=== PATIENT | female | born 1970 | race Caucasian/White ===

== ENCOUNTER 2019-08-27 07:32 | Day surgery (SDC) | payer OTHER ==
[~2019-08-27 07:32] MED LIST: DOCU100 PO; IBUP800 PO; IRON150C PO; OXYACE5T PO; PREVIFEM TABLE1 EACH PO; PROBIOTIC1 EAC1 PO; PROM25S PO; SIME80CH PO
== END 2019-08-27 23:05 | disposition home or self-care (01) ==
LOC: MOI US 07:32 → MOI MAM 08:00 → MOI US 23:05
DX: C50.911 Malignant neoplasm of unspecified site of right female breast (principal); C77.3 Secondary and unspecified malignant neoplasm of axilla and upper limb lymph nodes; Z17.0 Estrogen receptor positive status [ER+]
CPT/HCPCS: 19083; 38505; 76942; 77065; 88305; 88342; 88360; A4648

== ENCOUNTER 2023-03-24 13:10 | Day surgery (SDC) | payer OTHER ==
[~2023-03-24] VITALS: Ht 160 cm; Wt 67.3 kg
[2023-03-24] MEDS ORDERED: ALLERCLEAR10 MG (13:43)
[2023-03-24] MEDS ORDERED: AMLO5 (13:44)
[2023-03-24] MEDS ORDERED: CENTRUM SILVER1 EAC2 (13:44)
[2023-03-24] MEDS ORDERED: GABA100 (13:44)
[2023-03-24] MEDS ORDERED: ASPI81CH (13:44)
[2023-03-24] MEDS ORDERED: Melatonin5 M1 (13:45)
[2023-03-24 14:47] VITALS: BP 122/92
== END 2023-03-24 14:37 | disposition home or self-care (01) ==
LOC: ORSCSDS 13:10
PROVIDERS: Internal Medicine Gastroenterology
PROC: 0DJD8ZZ Inspection of Lower Intestinal Tract, Via Natural or Artificial Opening Endoscopic (ICD-10-PCS; principal; 2023-03-24 15:15)
DX: K57.30 Diverticulosis of large intestine without perforation or abscess without bleeding (principal); K64.8 Other hemorrhoids; I10 Essential (primary) hypertension; Z85.3 Personal history of malignant neoplasm of breast; Z79.810 Long term (current) use of selective estrogen receptor modulators (SERMs); Z79.899 Other long term (current) drug therapy
CPT/HCPCS: J0461; J2001; J2405; J7120; Q9968

== ENCOUNTER → 2024-08-12 | Outpatient (CLI) | payer SELFPAY ==
[~2024-08-12] MED LIST changes: +ALLERCLEAR10 MG; +AMLO5; +ASPI81CH; +CENTRUM SILVER1 EAC2; +GABA100; +Melatonin5 M1
[2024-08-13 12:02] LABS: Influenza A, PCR NEGATIVE (NEGATIVE); Influenza B, PCR NEGATIVE (NEGATIVE); SARS-Cov-2 (COVID-19) PCR, MMC NEGATIVE (NEGATIVE)
[2024-08-13 12:18] LABS: Resp Syncytial Virus, PCR POSITIVE (NEGATIVE)
== END ==
LOC: LAB 19:34 → LAB SHORT 19:34
PROVIDERS: Chiropractor
DX: Z20.9 Contact with and (suspected) exposure to unspecified communicable disease (principal)
CPT/HCPCS: 0241U